=== PATIENT | male | born 1960 | race Caucasian/White ===

== ENCOUNTER → 2016-12-05 | Outpatient (CLI) | payer MEDICAID ==
[~2016-12-05] MED LIST: HUMULIN 70/30 PE3 ML SC; LISINOPRIL 20MG20 MG PO; NOVOLIN 70/30 710 ML SC; SULFAMETHOXAZOL1 TA6 PO; ULTRAM50 MG PO
[2016-12-05 13:55] LABS: BUN 14 mg/dL (7-18); PROSTATE-SPECIFIC AG SCREEEN 2.6 ng/mL (0.0-4.0)
[2016-12-05 13:56] LABS: GFR (ESTIMATED) 77 ML/MIN (>60)
== END ==
LOC: CARL-LAB 08:45
PROVIDERS: Family Medicine
DX: E10.9 Type 1 diabetes mellitus without complications (principal); Z79.4 Long term (current) use of insulin; Z12.5 Encounter for screening for malignant neoplasm of prostate; F43.10 Post-traumatic stress disorder, unspecified
CPT/HCPCS: G0103

== ENCOUNTER → 2017-08-27 | Outpatient (CLI) | payer MEDICAID ==
--- NOTE | 2017-08-27 13:21 | RADIOLOGY REPORT PS360 ---
CHEST(2 VIEWS-NOT PORTABLE) HISTORY: Fever and cough URI ORDERING PHYSICIAN: BERNADETTE MEREDITH PATIENT AGE: 57 years COMPARISON: None available FINDINGS: There is mild cardiomegaly without failure. There is coarsening of the bronchovascular markings and mild prominence of the interstitium which may be seen in interstitial pneumonitis either acute or chronic. Smoking-related lung disease could also cause this appearance. Please correlate clinically. No lobar consolidation or collapse. Mild degenerative changes thoracic spine. IMPRESSION: Mild cardiomegaly. Interstitial pneumonitis versus smoking-related lung disease
== END ==
LOC: RAD 12:00
DX: J06.9 Acute upper respiratory infection, unspecified (principal)